=== PATIENT | female | born 1955 | race Caucasian/White ===

== ENCOUNTER 2020-08-18 14:41 | Emergency (ER) | payer OTHER, SELFPAY ==
--- NOTE | ~2020-08-18 | XR_ITS ---
EXAMINATION: [id number] DATE: 08/18/2020 16:05 INDICATION: Left rib pain. Injury. TECHNIQUE: A frontal view of the chest and 5 views of the left ribs were obtained. COMPARISON: None. FINDINGS: The chest demonstrates clear lungs without pneumonia, pleural effusion, or pneumothorax. Th e heart size is normal. IMPRESSION: 1. No rib fracture. Reviewed, dictated and finalized at location A. IMPRESSION: 1. No rib fracture.
[2020-08-18 15:04] VITALS: BP 152/77; PULSE 90; RESP 16; TEMP 37.1; O2SAT 100
--- NOTE | 2020-08-18 15:05 | ED.BACK ---
HPI - Back Pain/Injury General Chief Complaint: Back Pain/Injury Stated Complaint: Rib and Back Pain History of Present Illness HPI Narrative: This is a 65-year-old that comes in complaining of left-sided rib pain states that she fell on Monday she had some arm pain initially but yesterday when she went walking with her friend she noticed that she had some rib pain comes in worried about whether or not she has rib fractures. Related Data Home Medications Medication Instructions Recorded Confirmed albuterol sulfate 2 inh INHALATION DIRECTED 08/18/20 08/18/20 diazepam 2 mg PO DIRECTED 08/18/20 08/18/20 diltiazem HCl [DILT-XR] 180 mg PO DAILY 08/18/20 08/18/20 losartan 50 mg PO DAILY 08/18/20 08/18/20 triamterene-hydrochlorothiazid 1 tablet PO DAILY 08/18/20 08/18/20 Allergies Allergy/AdvReac Type Severity Reaction Status Date / Time amoxicillin Allergy Unknown Swelling Verified 08/18/20 15:17 of Lip/Tongue/Throat cephalexin Allergy Unknown Swelling Verified 08/18/20 15:17 of Lip/Tongue/Throat prednisone Allergy Unknown Swelling Verified 08/18/20 15:17 of Lip/Tongue/Throat Iodine and Iodide Containing Allergy Hives Verified 08/18/20 15:17 Produc Review of Systems Review of Systems: Narrative: CONSTITUTIONAL: Denies fever, chills, or sweats. EYES: Denies visual changes, redness, or discharge. ENT: Denies rhinorrhea, congestion, sore throat, or otalgia. CARDIOVASCULAR:Denies chest pain, palpitations, or edema. RESPIRATORY: Denies cough or dyspnea. GASTROINTESTINAL: Denies abdominal pain, nausea, vomiting, or diarrhea. GENITOURINARY: Denies dysuria or hematuria. SKIN:[Denies rash or itching. MUSCULOSKELETAL:Denies back pain, left-sided joint pain, or myalgia. NEUROLOGIC: Denies headache, numbness, or weakness. PSYCHIATRIC:Denies anxiety or depression PMFSH Comments At time as signature, I have reviewed and agree with nursing past medical, social, surgical and family history. Please see nursing chart for further information. There is no relevant family history pertinent to the presenting complaint. Exam Narrative: Exam Narrative: GENERAL:Well-appearing, well-nourished, and in no acute distress. HEAD:Normocephalic, atraumatic. EYES: PERRLA and EOMI. ENT: Nares clear, no rhinorrhea or epistaxis. Mucous membranes moist. NECK: Supple. CHEST: Clear to auscultation. No respiratory distress. No bruising noted no pain with palpitation HEART: Regular rate and rhythm. No murmur heard. Normal peripheral pulses. ABDOMEN: Soft, nontender, nondistended, normal active bowel sounds. EXTREMITIES: Normal range of motion. No edema. SKIN: Warm, dry, no rash. NEURO: No focal deficits. Alert and oriented x3. Course USER EXPERIENCE ARCHITECT/PA Physician Supervision Chest x-ray negative for fractures no pneumonia or pneumothorax Discharge Plan Discharge Clinical Impression: Pain in rib Contusion of rib on left side Qualifiers: Encounter type: initial encounter Qualified Code(s): S20.212A - Contusion of left front wall of thorax, initial encounter Patient Disposition: Home, Self-Care Condition: Stable Instructions: Antibiotic Form, Muscle Spasm (ED), Rib Contusion (ED) Additional Instructions: Avoid weight bearing until the pain subsides. Ice to the area 20-30 minutes 4-6 times a day Tylenol for lesser pain Ibuprofen regularly for the next 2-3 days for the inflammation Follow up with your primary care provider if the condition is not improving within 1 week or sooner if the condition worsens with numbness, tingling, decrease sensation with weakness to seek ER. Prescriptions: New cyclobenzaprine 5 mg tablet 5 mg PO TID PRN (Reason: muscle spasm) Qty: 14 RF: 0 ibuprofen 400 mg tablet 400 mg PO TID PRN (Reason: pain) Qty: 20 RF: 0 No Action losartan 50 mg tablet 50 mg PO DAILY RF: 0 diazepam 2 mg tablet 2 mg PO DIRECTED RF: 0 triamterene-hydrochlorothiazid 37.5
== END 2020-08-18 16:38 | disposition home or self-care (01) ==
PROVIDERS: Emergency Provider Nurse Practitioner Family
DX: S20.212A Contusion of left front wall of thorax, initial encounter (principal); W19.XXXA Unspecified fall, initial encounter; I10 Essential (primary) hypertension
CPT/HCPCS: 71101; 99213; G0463

== ENCOUNTER 2020-09-01 18:59 | Emergency (ER) | payer OTHER, SELFPAY ==
[2020-09-01 19:09] VITALS: BP 143/71; PULSE 79; RESP 18; TEMP 37; O2SAT 100
[2020-09-01 19:10] VITALS: BP 143/71; PULSE 79; RESP 18; TEMP 37; O2SAT 100
--- NOTE | 2020-09-01 19:55 | ED.NECK ---
HPI - Neck Pain/Injury General Chief Complaint: Neck Pain/Injury Stated Complaint: Shoulder and neck pain Source: patient and RN notes reviewed Limitations: no limitations History of Present Illness HPI Narrative: The patient, who is on several meds, presents with muscle pains. Patient states she slipped prior to arrival and fell while entangled with her pet and a neighbors dog. She abraded her right knee first, and 'rolled' to the ground. She complains of mild bilateral upper shoulder discomfort around cervical neck. Patient thought she might need an x-ray; we discussed Nexus criteria [midline tenderness, LOC, focality, etc.], all of which are absent. Symptoms are mild, only slightly worse with activity; no numbness/weakness, bruising?bleeding, midline pain, other/distracting injury. She was seen here earlier this month for similar event and wants to get rid of the dog. She had noncontributory chest x-ray at that time and has since improved. Related Data Home Medications Medication Instructions Recorded Confirmed albuterol sulfate 2 inh INHALATION DIRECTED 08/18/20 08/18/20 diazepam 2 mg PO DIRECTED 08/18/20 08/18/20 diltiazem HCl [DILT-XR] 180 mg PO DAILY 08/18/20 08/18/20 losartan 50 mg PO DAILY 08/18/20 08/18/20 triamterene-hydrochlorothiazid 1 tablet PO DAILY 08/18/20 08/18/20 Allergies Allergy/AdvReac Type Severity Reaction Status Date / Time amoxicillin Allergy Unknown Swelling Verified 09/01/20 19:09 of Lip/Tongue/Throat cephalexin Allergy Unknown Swelling Verified 09/01/20 19:09 of Lip/Tongue/Throat prednisone Allergy Unknown Swelling Verified 09/01/20 19:09 of Lip/Tongue/Throat Iodine and Iodide Containing Allergy Hives Verified 09/01/20 19:09 Produc Review of Systems Review of Systems: Narrative: General/Constitutional: No weight loss,fever Eyes: N0: Redness,discharge Ears/Nose/Throat: No: Epistaxis,ear discharge Respiratory: Denies: Hemoptysis Gastrointestinal: No Vomiting, Bleeding-rectal Skin: No Lumps, eruption Neurologic: No Focal Weakness,Sz Hematologic: Denies: Petechiae/Purpura Psychiatric: No: Suicida ideationl All Other Systems: Reviewed and Negative PMFSH Comments At time of signature, agree with nursing past medical, surgical, social and family history. There is no relevant family history pertinent to the presenting complaint Exam Narrative: Exam Narrative: General Appearance: Well appearing, Well nourished/overweight EYE: PERRLA, Conjunctiva clear Ears: External ear normal Nose: Normal nose Mouth/Throat: Normal appearing, Normal lips Neck: Supple, SROM/FAROM , no midline tenderness Respiratory: Airway patent Musculoskeletal: Normal strength (no footdrop, 5/5 : bi/Tri, no saddle weakness) Spine/Back: Paraspinal muscle tender (with mild decreased range of motion; ) Skin: Normal color, healing left arm bruise; right knee scant abrasion Neurological: A&O x3, CN II-XII intact, Normal reflexes (symmetric, 2+Bi/tri) Psychiatric: Normal mood Course Vital Signs Vital signs: Vital Signs Temperature 98.6 F 09/01/20 19:09 Pulse Rate 79 09/01/20 19:09 Respiratory Rate 18 09/01/20 19:09 Blood Pressure 143/71 H 09/01/20 19:09 Pulse Oximetry 100 09/01/20 19:09 Temperature 98.6 F 09/01/20 19:10 Pulse Rate 79 09/01/20 19:10 Respiratory Rate 18 09/01/20 19:10 Blood Pressure 143/71 H 09/01/20 19:10 Pulse Oximetry 100 09/01/20 19:10 Discharge Plan Discharge Clinical Impression: Muscle strain of upper back Patient Disposition: Home, Self-Care Condition: Stable Instructions: Cervical Strain (ED) Additional Instructions: Do not take prescription pain medicines at the same time with diazepam Prescriptions: New tramadol 50 mg tablet 50 mg PO BID PRN (Reason: pain) Qty: 10 RF: 0 No Action losartan 50 mg tablet 50 mg PO DAILY RF: 0 diazepam 2 mg tablet 2 mg PO
== END 2020-09-01 20:00 | disposition home or self-care (01) ==
PROVIDERS: Emergency Provider Emergency Medicine
DX: S29.012A Strain of muscle and tendon of back wall of thorax, initial encounter (principal); W01.0XXA Fall on same level from slipping, tripping and stumbling without subsequent striking against object, initial encounter; I10 Essential (primary) hypertension
CPT/HCPCS: 99213; G0463

== ENCOUNTER 2021-08-28 10:25 | Emergency (ER) | payer MEDICARE, SELFPAY ==
[2021-08-28 11:00] VITALS: BP 155/70; PULSE 77; RESP 16; TEMP 37; O2SAT 99
--- NOTE | 2021-08-28 11:26 | ED.HA ---
HPI - Headache General Chief Complaint: Headache Stated Complaint: uri Time Seen by Provider: 08/28/21 11:26 Source: patient and RN notes reviewed Mode of arrival: ambulatory Limitations: no limitations History of Present Illness HPI Narrative: 66-year-old female presented for complaint of frontal headache for about 3 weeks. She endorses today she felt a mac sensation in her head, head felt full, and she felt jittery after a walk in the [place] early this morning. She took Tylenol 1000 mg along with diazepam for history of inner ear problems causing dizziness. She states prior to her walker blood pressure was 118/80, when she returned home it was 160/78. She endorses for the last 3 weeks sinus pressure, she has been taking Flonase and Claritin as scheduled. On 08/11/2021 she was COVID-positive. Currently denies chest pain, shortness of breath, wheezing, nausea, vomiting, diarrhea, fevers or chills. Related Data Home Medications Medication Instructions Recorded Confirmed albuterol sulfate 90 mcg/actuation 2 inh inhalation DIRECTED 08/18/20 08/28/21 aerosol inhaler diazepam 2 mg tablet 2 mg PO DIRECTED 08/18/20 08/28/21 diltiazem HCl 180 mg 180 mg PO DAILY 08/18/20 08/28/21 capsule,extended release 24 hr, controlled (DILT-XR) losartan 50 mg tablet 50 mg PO DAILY 08/18/20 08/28/21 triamterene 37.5 1 tablet PO DAILY 08/18/20 08/28/21 mg-hydrochlorothiazide 25 mg tablet docusate sodium 100 mg capsule 1 cap PO DIRECTED 08/28/21 08/28/21 omeprazole 20 mg capsule,delayed 20 mg PO DAILY 08/28/21 08/28/21 release Allergies Allergy/AdvReac Type Severity Reaction Status Date / Time amoxicillin Allergy Unknown Swelling Verified 08/28/21 11:01 of Lip/Tongue/Throat cephalexin Allergy Unknown Swelling Verified 08/28/21 11:01 of Lip/Tongue/Throat prednisone Allergy Unknown Swelling Verified 08/28/21 11:01 of Lip/Tongue/Throat Iodine and Iodide Containing Allergy Hives Verified 08/28/21 11:01 Produc Review of Systems Review of Systems: CONSTITUTIONAL: Denies malaise, chills, sweats, fever EYES: Denies visual changes, redness, or discharge ENT: Reports congestion, sinus pain CARDIOVASCULAR: Denies chest pain, palpitations, edema RESPIRATORY: Denies dyspnea GASTROINTESTINAL: Denies abdominal pain, nausea, vomiting, diarrhea SKIN: Denies rash or itching Exam Narrative: GENERAL: well-appearing EYES: PERRLA, conjunctivae clear ENT: Mucous membranes moist. TMs pearly amaya with normal light reflex bilaterally; no tragal tenderness. Oropharynx erythematous without lesions or exudate NECK: Supple. No lymphadenopathy CHEST: Clear to auscultation, breath sounds equal. HEART: Regular rate and rhythm. No murmur heard. SKIN: Warm, dry, no rash. NEURO: Alert and oriented x3. PSYCH: Normal mood and affect, talkative Course Course Emergency Course: Patient is aware of diagnosis, understands and agrees to treatment plan. Anticipatory guidance given. Patient agrees to follow-up as directed and is aware of reasons to seek care at the emergency department. Portions of this record may have been created with voice recognition software Level of Care: Express Care Visit Vital Signs Vital signs: Vital Signs Temperature 98.6 F 08/28/21 11:00 Pulse Rate 77 08/28/21 11:00 Respiratory Rate 16 08/28/21 11:00 Blood Pressure 155/70 H 08/28/21 11:00 Pulse Oximetry 99 08/28/21 11:00 Oxygen Delivery Room Air 08/28/21 11:00 Temperature 98.6 F 08/28/21 11:00 Pulse Rate 77 08/28/21 11:00 Respiratory Rate 16 08/28/21 11:00 Blood Pressure 155/70 H 08/28/21 11:00 Pulse Oximetry 99 08/28/21 11:00 Oxygen Delivery Room Air 08/28/21 11:00 reviewed MDM - Headache MDM Narrative Medical decision making narrative: Patient is in stable condition, symptoms are consistent with sinusitis. She is advised on antibiotics and continuing supportive t
== END 2021-08-28 11:44 | disposition home or self-care (01) ==
PROVIDERS: Emergency Provider Nurse Practitioner Family
DX: J06.9 Acute upper respiratory infection, unspecified (principal); Z86.16 Personal history of COVID-19
CPT/HCPCS: 99213; G0463

== ENCOUNTER 2022-02-28 06:24 | Emergency (ER) | payer MEDICARE, SELFPAY ==
--- NOTE | ~2022-02-28 | XR_ITS ---
EXAMINATION: XR chest 2V DATE: 02/28/2022 10:25 INDICATION: Shortness of breath. TECHNIQUE: Frontal and lateral views of the chest were obtained. COMPARISON: Chest 2 views 08/18/2020 FINDINGS: The chest demonstrates clear lungs without pneumonia, pleural effusion, or pneumothorax. Th e heart size is normal. There is an old healed left rib fracture. IMPRESSION: 1. No acute cardiopulmonary disease. Reviewed, dictated and finalized at location A. ESTATE BROKER
--- NOTE | ~2022-02-28 | CT_ITS ---
Non-contrast Head CT History: Head injury Technique: Axial non-contrast imaging of the brain was performed. Dose reduction technique was used on this scan by utilizing automated exposure control and iterative reconstruction technique. The dose -length product (DLP) was 529.67 mGy-cm. Findings: There is no evidence of intracranial hemorrhage, mass lesion, or acute infarct. Brain par enchyma appears normal. The ventricles and subarachnoid spaces are normal in size. The calvarium ap pears normal. Mild right sphenoid sinus disease noted. The remaining visualized paranasal sinuses and mastoid air cells are clear. Impression: No intracranial abnormality seen. Mild right sphenoid sinus disease. Reviewed, dictated and finalized at location [] T MANAGER Impression: No intracranial abnormality seen. Mild right sphenoid sinus disease.
[2022-02-28 06:31] VITALS: BP 141/84; PULSE 88; RESP 18; TEMP 36.3; O2SAT 100
--- NOTE | 2022-02-28 09:55 | ECG_ITS ---
Measurements Intervals [place] Rate: 78 P: 42 UT: 148 QRS: 2 QRSD: 151 T: 5 QT: 403 QTc: 460 Interpretive Statements SINUS RHYTHM RIGHT BUNDLE BRANCH BLOCK [120+ ms QRS DURATION, UPRIGHT V1, 40+ ms S IN I/aVL/V4/V5/V6] ABNORMAL ECG Electronically Signed On 02-28-2022 10:30:56 PORTER SAMPLE CASE by Aaron Teran M.D.
[2022-02-28 09:56] VITALS: PULSE 67
[2022-02-28 10:00] VITALS: O2SAT 100
[2022-02-28 10:02] VITALS: BP 142/75; PULSE 69; RESP 14; O2SAT 99
[2022-02-28 10:14] LABS: Basophils Absolute Auto 0.1 K/mm3 (0.0-0.1); Basophils Percent Auto 0.7 % (0.2-1.2); Eosinophils Percent Auto 0.5 % (0-4.4); Hematocrit 44.4 % (37.0-47.0); Hemoglobin 14.7 g/dL (12.0-15.0); Immature Granulocyte Absolute 0.01 K/mm3 (0.00-0.031); Immature Granulocyte Percent A 0.1 % (0-0.5); Lymphocytes Absolute Auto 1.19 K/mm3 (0.9-3.2); Lymphocytes Percent Auto 16.3 % (18.3-44.2); Mean Corpuscular HGB Conc 33.1 g/dl (32-36); Mean Corpuscular Hemoglobin 29.7 pg (26-34); Mean Corpuscular Volume 89.7 fl (80-100); Mean Platelet Volume 8.1 fl (7.4-10.4); Monocytes Absolute Auto 0.4 K/mm3 (0.1-0.6); Monocytes Percent Auto 5.3 % (2.6-8.5); Neutrophils Absolute Auto 5.6 K/mm3 (1.3-6.7); Neutrophils Percent Auto 77.1 % (45.5-73.1); Platelet Count Result 368 k/mm3 (150-375); Red Blood Count 4.95 M/mm3 (4.2-5.4); Red Cell Distribution Width 12.7 % (11.5-14.5); White Blood Count 7.3 K/mm3 (4.5-10.0)
--- NOTE | 2022-02-28 10:14 | ED.GENADULT ---
HPI - General Adult General Chief complaint: Shortness of Breath/Dyspnea Stated complaint: short of breath Time Seen by Provider: 02/28/22 09:57 History of Present Illness HPI narrative: 66-year-old female presenting to the emergency department for evaluation of feeling shaky. Reports yesterday she did have a minor head injury yesterday but denies any loss of consciousness. Patient states he struck her head on a grocery cart. Patient states that at approximately 1230 this morning she began having onset of generalized weakness and shakiness. Patient states she woke up to urinate when she noticed the symptoms. Patient reports he is also had some shortness of breath as well. Patient is currently following up with a uro hand stone polisher at [facility]. Patient does have a history of bladder and uterine prolapse. Patient does wear a pessary device. Related Data Home Medications Medication Instructions Recorded Confirmed albuterol sulfate 90 mcg/actuation 2 inh inhalation DIRECTED 08/18/20 08/28/21 aerosol inhaler diazepam 2 mg tablet 2 mg PO DIRECTED 08/18/20 08/28/21 diltiazem HCl 180 mg 180 mg PO DAILY 08/18/20 08/28/21 capsule,extended release 24 hr, controlled (DILT-XR) losartan 50 mg tablet 50 mg PO DAILY 08/18/20 08/28/21 triamterene 37.5 1 tablet PO DAILY 08/18/20 08/28/21 mg-hydrochlorothiazide 25 mg tablet docusate sodium 100 mg capsule 1 cap PO DIRECTED 08/28/21 08/28/21 omeprazole 20 mg capsule,delayed 20 mg PO DAILY 08/28/21 08/28/21 release Allergies Allergy/AdvReac Type Severity Reaction Status Date / Time amoxicillin Allergy Unknown Swelling Verified 02/28/22 10:01 of Lip/Tongue/Throat cephalexin Allergy Unknown Swelling Verified 02/28/22 10:01 of Lip/Tongue/Throat prednisone Allergy Unknown Swelling Verified 02/28/22 10:01 of Lip/Tongue/Throat Iodine and Iodide Containing Allergy Hives Verified 02/28/22 10:01 Produc Review of Systems Review of Systems: CONSTITUTIONAL: See HPI EYES: Denies visual changes, redness, or discharge. ENT: Denies rhinorrhea, congestion, sore throat, or otalgia. CARDIOVASCULAR: Denies chest pain, palpitations, or edema. RESPIRATORY: see HPI GASTROINTESTINAL: Denies abdominal pain, nausea, vomiting, or diarrhea. GENITOURINARY: Does have intermittent dysuria. SKIN: Denies rash or itching. MUSCULOSKELETAL: Denies back pain, joint pain, or myalgia. NEUROLOGIC: Denies headache, numbness, or weakness. Exam Narrative: APPEARANCE: Well appearing, no pain, no distress, well-nourished. HEAD: normocephalic, atraumatic. EYES: PERRLA/EOMI, conjunctivae clear. NOSE: Normal no drainage NECK: Supple. No adenopathy, no masses. RESPIRATORY: Airway patent, respirations nonlabored. Clear to auscultation bilaterally, no rales, rhonchi, wheezing. CARDIOVASCULAR: Regular rate and rhythm without murmurs rubs or gallops. ABDOMINAL: Soft, nontender, nondistended, normal bowel sounds MUSCULOSKELETAL: Moves all extremities. Strength/ROM intact, No edema, No calf tenderness. NEURO: Alert. Cranial nerves II through XII intact. Grossly intact SKIN: Warm, dry. Normal Color PSYCHIATRIC: Normal affect/mood. Course Course Emergency Course: Patient reports she did feel improved at time of evaluation. Patient's head CT was negative. Patient was negative for COVID flu influenza and RSV. Patient is afebrile with no leukocytosis. Patient's UA is concerning for a possible urinary tract infection. Patient does have a pessary pessary device in place and does report some pain with urination. Urine culture is pending and patient was started on Macrobid. Patient was updated on the results of the work-up. All questions and concerns were addressed. Vital Signs Vital signs: Vital Signs Temperature 97.4 F L 02/28/22 06:31 Pulse Rate 88 02/28/22 06:31 Respiratory Rate 18 02/28/22 06:31 Blood Pressure 141/84 H 02/28/22 06:31 Pulse Oximetry 100 1
--- NOTE | 2022-02-28 10:19 | PC.NURSE ---
Pt to CT scan and XRAY at this time.
[2022-02-28 10:22] LABS: Alanine Aminotransferase 18 U/L (6-35); Alkaline Phosphatase 104 U/L (38-126); Anion Gap 7 mmol/L (8-16); Aspartate Amino Transferase 23 U/L (14-36); Bilirubin,Total 0.6 mg/dL (0.2-1.3); Blood Urea Nitrogen 12 mg/dL (7-17); Calcium 9.3 mg/dL (8.4-10.2); Carbon Dioxide 31 mmol/L (22-30); Chloride 101 mmol/L (98-107); Estimated Glomerular Filt Rate > 60; Glucose 109 mg/dL (65-110); Potassium 3.7 mmol/L (3.4-5.0); Sodium 139 mmol/L (137-145)
[2022-02-28 11:16] LABS: Influenza A QL RT-PCR Negative (Negative); Influenza B QL RT-PCR Negative (Negative); RSV RNA, RT-PCR Negative (Negative); SARS-CoV-2 RNA PCR Negative
[2022-02-28 11:25] LABS: Add Urine Microscopic? YES; Appearance Urine Clear (Clear); Bilirubin Urine Negative (Negative); Blood Urine 1+ (Negative); Color Urine Light Yellow (Yellow); Glucose Urine UA Negative (Negative); Ketones Urine Negative (Negative); Leukocyte Esterase Ur 1+ LEU/UL (Negative); Nitrate Urine Negative (Negative); Protein Urine Negative (Negative); Urobilinogen Urine 0.2 mg/dL (<2.0); pH Urine 7.5 (5.0-9.0)
[2022-02-28 11:41] LABS: Mucus Urine Rare /lpf; Squamous Epithelial Cell Urine Rare /hpf (Few); WBC Urine 0-3 /hpf
[2022-02-28] MEDS: NITROFURANTOIN MONOHYD MACROCR 100 MG CAP PO (12:59)
[2022-02-28 13:00] VITALS: BP 141/65; PULSE 71; RESP 18; O2SAT 100
== END 2022-02-28 13:11 | disposition home or self-care (01) ==
PROVIDERS: Emergency Provider Emergency Medicine
DX: S09.90XA Unspecified injury of head, initial encounter (principal); N39.0 Urinary tract infection, site not specified; R53.83 Other fatigue; Z20.822 Contact with and (suspected) exposure to COVID-19; I45.10 Unspecified right bundle-branch block; W22.8XXA Striking against or struck by other objects, initial encounter
CPT/HCPCS: 36415; 70450; 71046; 80053; 81001; 85025; 87086; 87088; 87637; 93005; 99284; A9270

== ENCOUNTER 2023-02-02 01:32 | Emergency (ER) | payer MEDICARE, SELFPAY ==
[2023-02-02] VITALS (8 sets, daily range): BP systolic 141–177; BP diastolic 67–83; PULSE 64–93; RESP 12–20; TEMP 36.2; O2SAT 99–100
--- NOTE | ~2023-02-02 | XR_ITS ---
EXAMINATION: XR chest 2V DATE: 02/02/2023 02:34 INDICATION: Heart palpitations TECHNIQUE: PA and lateral views of the chest are obtained. COMPARISON: 02/28/2022 FINDINGS: The lungs are free of acute opacities. No pleural effusion or pneumothorax. The cardiomedia stinal silhouette is normal. There is mild thoracic spondylosis. IMPRESSION: 1. No acute cardiopulmonary abnormality. Reviewed, dictated and finalized at location F. OR PRICING ANALYST
--- NOTE | 2023-02-02 01:56 | ECG_ITS ---
Measurements Intervals [place] Rate: 78 P: 144 CT: 183 QRS: -14 QRSD: 157 T: 13 QT: 423 QTc: 484 Interpretive Statements ECTOPIC ATRIAL RHYTHM POSSIBLE LEFT ATRIAL ENLARGEMENT RIGHT BUNDLE BRANCH BLOCK ABNORMAL ECG COMPARED TO ECG 02/28/2022 09:58:23 ECTOPIC ATRIAL RHYTHM NOW PRESENT Electronically Signed On 02-02-2023 8:48:45 CLIENT CARE COORDINATOR by Jose Maza D.O.
--- NOTE | 2023-02-02 01:57 | ED.GENADULT ---
HPI - General Adult General Chief complaint: Unspecified Stated complaint: palpations Time Seen by Provider: 02/02/23 01:51 Source: patient Limitations: no limitations History of Present Illness HPI narrative: This is a 67-year-old female presents with multiple concerns. Approximately 2:00 a.m. this morning she awoke to urinate which is not unusual for her she has a history of prolapsed bladder and uterus and uses a pessary. She noted that she was having palpitations and felt jittery at the time, tremulous. In General, she just states that she feels off. She has had some sinus pressure and congestion as well as a headache since Monday. She took her heart rate at home was between 100 110 beats per minute. Before this has occurred she was noted to have a urinary tract infection. General over the past day or so she has been alternating between feeling chilled. she denies any history of atrial fibrillation but does have a known right bundle-branch block. She does not follow with a spent grain dryer. She denies any hematuria or dysuria. She has been having diarrhea this causes some mild abdominal cramping. She takes Linzess every other day as per her GI instructions. She denies any flank pain. Received covid booster 01/11/23 and flu shot 12/08/22 Related Data Home Medications Medication Instructions Recorded Confirmed albuterol sulfate 90 mcg/actuation 2 inh inhalation DIRECTED 08/18/20 08/28/21 aerosol inhaler diazepam 2 mg tablet 2 mg PO DIRECTED 08/18/20 08/28/21 diltiazem HCl 180 mg 180 mg PO DAILY 08/18/20 08/28/21 capsule,extended release 24 hr, controlled (DILT-XR) losartan 50 mg tablet 50 mg PO DAILY 08/18/20 08/28/21 triamterene 37.5 1 tablet PO DAILY 08/18/20 08/28/21 mg-hydrochlorothiazide 25 mg tablet docusate sodium 100 mg capsule 1 cap PO DIRECTED 08/28/21 08/28/21 omeprazole 20 mg capsule,delayed 20 mg PO DAILY 08/28/21 08/28/21 release Allergies Allergy/AdvReac Type Severity Reaction Status Date / Time amoxicillin Allergy Unknown Swelling Verified 02/28/22 10:01 of Lip/Tongue/Throat cephalexin Allergy Unknown Swelling Verified 02/28/22 10:01 of Lip/Tongue/Throat prednisone Allergy Unknown Swelling Verified 02/28/22 10:01 of Lip/Tongue/Throat Iodine and Iodide Containing Allergy Hives Verified 02/28/22 10:01 Produc PMFSH Past Medical History Medical History (Updated 02/03/23 @ 00:00 by Tim Jamison) Intrauterine pessary Prolapsed bladder Prolapsed uterus Screening mammogram, encounter for 01/30/23 Surgical History Surgical History (Updated 02/05/23 @ 06:41 by Alexa Blake MD) H/O partial thyroidectomy History of left hip replacement 10/04/22 Exam Narrative: GENERAL: Well-appearing, well-nourished, and in no acute distress. HEAD: Normocephalic, atraumatic. ENT: Nares clear, no rhinorrhea or epistaxis. Mucous membranes tacky NECK: Supple. Trachea midline. No asymmetry on gross appearance. CHEST: Clear to auscultation. No respiratory distress. Speaking in full sentences. HEART: Regular rate and rhythm. No murmur heard. ABDOMEN: Soft, nontender, nondistended Back: No CVA tenderness EXTREMITIES: Normal range of motion. No edema. SKIN: Warm, dry, no rash. Does have 2 areas of seborrheic keratosis on left back and on lower abdomen NEURO: No focal deficits. Alert and oriented x3. PSYCH: Normal mood and affect. Course Vital Signs Vital signs: Vital Signs Temperature 97.2 F L 02/02/23 01:35 Pulse Rate 93 02/02/23 01:35 Respiratory Rate 20 02/02/23 01:35 Blood Pressure 177/83 H 02/02/23 01:35 Pulse Oximetry 99 02/02/23 01:35 Oxygen Delivery Room Air 02/02/23 01:35 Temperature 97.2 F L 02/02/23 01:35 Pulse Rate 78 02/02/23 05:37 Respiratory Rate 14 02/02/23 05:37 Blood Pressure 144/78 H 02/02/23 05:37 Pulse Oximetry 99 02/02/23 05:37 Oxygen Delivery Room Air 01/12
[2023-02-02] MEDS: SODIUM CHLORIDE 0.9% IV 1,000 ML 999 ML IV CONT (02:25)
[2023-02-02 02:31] LABS: Basophils Percent Auto 0.6 % (0.2-1.2); Eosinophils Absolute Auto 0.1 K/mm3 (0-0.3); Eosinophils Percent Auto 1.9 % (0-4.4); Hematocrit 41.4 % (37.0-47.0); Hemoglobin 13.1 g/dL (12.0-15.0); Immature Granulocyte Absolute 0.02 K/mm3 (0.00-0.031); Immature Granulocyte Percent A 0.3 % (0-0.5); Lymphocytes Absolute Auto 2.21 K/mm3 (0.9-3.2); Lymphocytes Percent Auto 35.1 % (18.3-44.2); Mean Corpuscular HGB Conc 31.6 g/dl (32-36); Mean Corpuscular Volume 91.8 fl (80-100); Mean Platelet Volume 8.2 fl (7.4-10.4); Monocytes Absolute Auto 0.8 K/mm3 (0.1-0.6); Monocytes Percent Auto 12.2 % (2.6-8.5); Neutrophils Absolute Auto 3.1 K/mm3 (1.3-6.7); Neutrophils Percent Auto 49.9 % (45.5-73.1); Platelet Count Result 354 k/mm3 (150-375); Red Blood Count 4.51 M/mm3 (4.2-5.4); Red Cell Distribution Width 12.6 % (11.5-14.5); White Blood Count 6.3 K/mm3 (4.5-10.0)
[2023-02-02 02:35] LABS: Appearance Urine Clear (Clear); Bacteria Urine None Seen /hpf; Bilirubin Urine Negative (Negative); Blood Urine 1+ (Negative); Color Urine Yellow (Yellow); Glucose Urine UA Negative (Negative); Ketones Urine Negative (Negative); Leukocyte Esterase Ur Negative LEU/UL (Negative); Nitrate Urine Negative (Negative); Non Pathogenic Casts 0-2; Protein Urine Negative (Negative); RBC Urine 0-2 /hpf (0-2); Specific Grav Ur 1.012 (1.001-1.035); Squamous Epithelial Cell Urine None seen /hpf (Few); Urobilinogen Urine 0.2 mg/dL (<2.0); WBC Urine 0-5 /hpf; pH Urine 5.5 (5.0-9.0)
[2023-02-02 02:44] LABS: Alanine Aminotransferase 20 U/L (6-35); Albumin Level 4.5 g/dL (3.5-5.1); Alkaline Phosphatase 78 U/L (38-126); Anion Gap 13 mmol/L (8-16); Aspartate Amino Transferase 21 U/L (14-36); Bilirubin,Total 0.6 mg/dL (0.2-1.3); Blood Urea Nitrogen 17 mg/dL (7-17); Calcium 9.4 mg/dL (8.4-10.2); Carbon Dioxide 26 mmol/L (22-30); Chloride 101 mmol/L (98-107); Estimated CRCL calculation 90 ml/min; Estimated Glomerular Filt Rate > 60; Glucose 120 mg/dL (65-110); Potassium 3.7 mmol/L (3.4-5.0); Sodium 140 mmol/L (137-145)
[2023-02-02 02:56] LABS: Troponin I < 0.012 ng/mL (0.000-0.034)
[2023-02-02 02:59] LABS: Add Urine Microscopic? YES
[2023-02-02 03:08] LABS: Influenza A QL RT-PCR Negative (Negative); Influenza B QL RT-PCR Negative (Negative); SARS-CoV-2 RNA PCR Negative (Negative)
[2023-02-02 03:16] LABS: Thyroid Stimulating Hormone < 0.015 uIU/mL (0.465-4.680)
[2023-02-02 03:49] LABS: Free T4 Free Thyroxine 1.86 ng/mL (0.78-2.19)
[2023-02-02 03:59] LABS: NT Pro B Type Natriuretic Pept 71 pg/mL (19.9-100)
--- NOTE | 2023-02-02 04:08 | PC.NURSE ---
Pt ambulatory to restroom with steady gait.
== END 2023-02-02 05:39 | disposition home or self-care (01) ==
PROVIDERS: Emergency Provider Student in an Organized Health Care Education/Training Program
DX: E05.90 Thyrotoxicosis, unspecified without thyrotoxic crisis or storm (principal); E89.0 Postprocedural hypothyroidism; N81.4 Uterovaginal prolapse, unspecified; Z96.642 Presence of left artificial hip joint; Z20.822 Contact with and (suspected) exposure to COVID-19; I45.10 Unspecified right bundle-branch block; R94.31 Abnormal electrocardiogram [ECG] [EKG]
CPT/HCPCS: 36415; 71046; 80053; 81001; 83880; 84439; 84443; 84480; 84484; 85025; 87636; 93005; 96360; 96361; 99284; J7030

== ENCOUNTER 2023-06-21 17:53 | Emergency (ER) | payer MEDICARE, SELFPAY ==
--- NOTE | ~2023-06-21 | CT_ITS ---
EXAMINATION: CT BRAIN W/O DATE: 06/21/2023 18:55 INDICATION: Dizziness and headache TECHNIQUE: Computed tomography (CT) of the head was performed without intravenous contrast. The dose- length product was 605.33 mGy-cm. Automated exposure control and iterative reconstruction technique were employed. COMPARISON: CT report dated 02/28/2022 FINDINGS: Normal brain parenchymal volume for age. Normal amaya-white differentiation. No acute intrac ranial hemorrhage, infarction, mass or mass effect. No ventriculomegaly or midline shift. Midline sagittal images demonstrate a normal corpus callosum, c raniovertebral junction and sella turcica. Basilar cisterns are patent. There is a mucous retention cyst of the left maxillary sinus, partially visualized. Mastoids are pneu matized. There is mild mucosal thickening of the right posterior ethmoid air cells and right sphenoid sinus. IMPRESSION: 1. No acute intracranial abnormality. 2: Mild sinus disease. Reviewed, dictated and finalized at location A.
[2023-06-21 17:54] VITALS: BP 173/85; PULSE 125; RESP 20; TEMP 36.3; O2SAT 99
--- NOTE | 2023-06-21 17:58 | ECG_ITS ---
SEE SCANNED COPY FOR CONFIRMED REPORT MTDD
--- NOTE | 2023-06-21 18:30 | ED.ARRPALP ---
HPI - Arrhythmia/Palpitations General Chief Complaint: Arrhythmia/Palpitations <Obie Perla APRN - Last Filed: 06/21/23 18:31> Stated Complaint: headache <Obie Perla APRN - Last Filed: 06/21/23 18:31> Time Seen by Provider: 06/21/23 18:30 <Obie Perla APRN - Last Filed: 06/21/23 18:31> Focused HPI: Anyi is a 67-year-old female patient presenting to the emergency room for complaints of dizziness, headache, nausea, and upper abdominal discomfort. States that the symptoms started this morning with the headache nausea. She denies any upper respiratory symptoms. Is feeling anxious. She reports her headache pain as 7/10 currently. Took Tylenol extra-strength for her Tylenol and she had slight relief from this. Reports that she has had treatment for hyperthyroidism General: Well-developed, well nourished, in no apparent distress Head: Normocephalic, atraumatic. Cardio: Tachycardic, regular rate and rhythm, s1 and s2 normal, no murmur appreciated. Resp: Clear to auscultation bilaterally, no rhonchi, rales, wheezing or rubs. Extremities: No deformity, no edema, no cyanosis, capillary refill less than 2 seconds, peripheral pulses palpable and strong. Integumentary: Heppner, warm, and dry, intact without lesion, no rashes. Patient screened in triage and initial orders placed. Additional care and disposition to be based upon diagnostic testing and treatment. <Obie Perla APRN - Last Filed: 06/21/23 18:31> History of Present Illness HPI narrative: patient 67-year-old female who presents emergency department with chief complaint of dizziness headache nausea the patient reports that she had episode of palpitations today and noticed that her heart rate was beating in the 120s. The patient states that she has had prior history of hyperthyroidism has been treated for that the patient states she was concerned as she had palpitations whenever her thyroid was Elevated <Nima Suazo MD - Last Filed: 06/21/23 21:11> Related Data Home Medications: Home Medications Medication Instructions Recorded Confirmed albuterol sulfate 90 mcg/actuation 2 inh inhalation DIRECTED 08/18/20 08/28/21 aerosol inhaler diazepam 2 mg tablet 2 mg PO DIRECTED 08/18/20 08/28/21 diltiazem HCl 180 mg 180 mg PO DAILY 08/18/20 08/28/21 capsule,extended release 24 hr, controlled (DILT-XR) losartan 50 mg tablet 50 mg PO DAILY 08/18/20 08/28/21 triamterene 37.5 1 tablet PO DAILY 08/18/20 08/28/21 mg-hydrochlorothiazide 25 mg tablet docusate sodium 100 mg capsule 1 cap PO DIRECTED 08/28/21 08/28/21 omeprazole 20 mg capsule,delayed 20 mg PO DAILY 08/28/21 08/28/21 release <Obie Perla APRN - Last Filed: 06/21/23 18:31> Allergies/Adverse Reactions: Allergies Allergy/AdvReac Type Severity Reaction Status Date / Time amoxicillin Allergy Unknown Swelling Verified 02/28/22 10:01 of Lip/Tongue/Throat cephalexin Allergy Unknown Swelling Verified 02/28/22 10:01 of Lip/Tongue/Throat prednisone Allergy Unknown Swelling Verified 02/28/22 10:01 of Lip/Tongue/Throat Iodine and Iodide Containing Allergy Hives Verified 02/28/22 10:01 Produc <Obie Perla APRN - Last Filed: 06/21/23 18:31> Review of Systems Review of Systems: A 10 system review of systems was completed on the patient and is negative except for what is stated in the HPI. Nursing and ancillary documentation was reviewed. <Nima Suazo MD - Last Filed: 06/21/23 21:11> [facility] Past Medical History Medical History: Medical History Intrauterine pessary Prolapsed bladder Prolapsed uterus Screening mammogram, encounter for 01/30/23 <Obie Perla APRN - Last Filed: 06/21/23 18:31> Surgical History Surgical History: Surgical History (Reviewed 0
[2023-06-21 19:09] VITALS: BP 150/86; PULSE 76; RESP 18; O2SAT 100
[2023-06-21 19:16] LABS: Basophils Absolute Auto 0.1 K/mm3 (0.0-0.1); Basophils Percent Auto 0.7 % (0.2-1.2); Eosinophils Absolute Auto 0.1 K/mm3 (0-0.3); Eosinophils Percent Auto 1.7 % (0-4.4); Hematocrit 43.6 % (37.0-47.0); Hemoglobin 14.2 g/dL (12.0-15.0); Immature Granulocyte Absolute 0.02 K/mm3 (0.00-0.031); Immature Granulocyte Percent A 0.3 % (0-0.5); Lymphocytes Absolute Auto 2.22 K/mm3 (0.9-3.2); Lymphocytes Percent Auto 29.8 % (18.3-44.2); Mean Corpuscular HGB Conc 32.6 g/dl (32-36); Mean Corpuscular Hemoglobin 29.8 pg (26-34); Mean Corpuscular Volume 91.4 fl (80-100); Mean Platelet Volume 8.5 fl (7.4-10.4); Monocytes Absolute Auto 0.7 K/mm3 (0.1-0.6); Monocytes Percent Auto 9.7 % (2.6-8.5); Neutrophils Absolute Auto 4.3 K/mm3 (1.3-6.7); Neutrophils Percent Auto 57.8 % (45.5-73.1); Platelet Count Result 366 k/mm3 (150-375); Red Blood Count 4.77 M/mm3 (4.2-5.4); Red Cell Distribution Width 13.1 % (11.5-14.5); White Blood Count 7.4 K/mm3 (4.5-10.0)
[2023-06-21 19:20] LABS: Appearance Urine Clear (Clear); Bilirubin Urine Negative (Negative); Blood Urine Negative (Negative); Color Urine Yellow (Yellow); Glucose Urine UA Negative (Negative); Ketones Urine Negative (Negative); Leukocyte Esterase Ur Negative LEU/UL (Negative); Nitrate Urine Negative (Negative); Protein Urine Negative (Negative); Specific Grav Ur 1.018 (1.001-1.035); Urobilinogen Urine 0.2 mg/dL (<2.0)
[2023-06-21 19:32] LABS: Add Urine Microscopic? NO
[2023-06-21 19:34] LABS: Alanine Aminotransferase 17 U/L (6-35); Albumin Level 5.1 g/dL (3.5-5.1); Alkaline Phosphatase 110 U/L (38-126); Anion Gap 11 mmol/L (4-12); Aspartate Amino Transferase 23 U/L (14-36); Bilirubin,Total 0.5 mg/dL (0.2-1.3); Blood Urea Nitrogen 20 mg/dL (7-17); Calcium 9.4 mg/dL (8.4-10.2); Carbon Dioxide 27 mmol/L (22-30); Chloride 101 mmol/L (98-107); Estimated CRCL calculation 68 ml/min; Estimated Glomerular Filt Rate > 60; Glucose 114 mg/dL (65-110); Potassium 3.6 mmol/L (3.4-5.0); Sodium 139 mmol/L (137-145)
[2023-06-21 19:35] LABS: INR 0.9; Prothrombin Time 12.9 Seconds (11.1-14.7)
[2023-06-21 19:46] LABS: Troponin I < 0.012 ng/mL (0.000-0.034)
[2023-06-21 20:02] LABS: Lipase 126 U/L (23-300)
[2023-06-21 21:30] VITALS: BP 131/74; PULSE 67; RESP 20; TEMP 36.6; O2SAT 100
== END 2023-06-21 21:40 | disposition home or self-care (01) ==
PROVIDERS: Nurse Practitioner Family; Emergency Provider Emergency Medicine
DX: R00.2 Palpitations (principal)
CPT/HCPCS: 36415; 70450; 80053; 81003; 83690; 83735; 84443; 84484; 85025; 85610; 85730; 93005; 99284